=== PATIENT | female | born 2000 | race Caucasian/White ===

== ENCOUNTER 2019-12-11 17:36 | Observation (INO) ==
[2019-12-11] MEDS ORDERED: KETOROLAC 30 MG/ML VIAL IV STA (17:48)
[2019-12-11] MEDS ORDERED: DIAZEPAM 5 MG/ML INJ 10ML VIAL IV STA (17:48)
--- NOTE | 2019-12-11 18:28 | Emergency Department Note ---
History of Present Illness General Chief Complaint: Back Injury/Pain Stated Complaint: BACK INJURY Time Seen by Provider: 12/11/19 17:38 Source: patient Mode of arrival: ambulatory Limitations: no limitations History of Present Illness Provider Complaint: back pain Onset (ago): hour(s) less than 1 Duration: constant Similar Symptoms Previously: No Location: lumbar spine Quality: + sharp Radiation: right leg Severity: severe Current Pain Intensity: 10 Relieved By: + immobilization and + supine Exacerbated By: + movement and + sitting upright Context: + other (Squat while catching weighted ball - "wall balls") Associated symptoms: + weakness, + difficulty walking and + parasthesias Treatments prior to arrival: prescription analgesics This 19-year-old female patient presents the emergency department today via ambulance due to severe low back pain. The patient states she was working out and doing wall balls. She states she caught the weighted ball and squatted down when she experienced the sudden onset of severe low back pain. She states she was immediately unable to move, felt to her hands and knees, and was assisted to lie flat on the ground. The patient complains of a sharp pain which radiates from her low back upwards and down into the right leg. The patient reports severe spasms. She states her right leg feels tingly and she was unable to ambulate after this occurred. The patient denies any head or neck pain. She did not fall. She denies any direct trauma. She denies any recent fever or illness. She denies history of back problems. She was given 1 dose of morphine while in route to the ED without relief. She denies any bowel or bladder incontinence. She denies any abdominal pain. Home Medications Home Medications Medication Instructions Recorded Confirmed Type L norgest/e.estradiol-e.estrad 1 tab PO HS 12/11/19 12/11/19 History [Camrese] cyclobenzaprine 10 mg PO TID PRN #15 tab 12/11/19 Rx hydrocodone-acetaminophen [[place]ier] 1 tab PO Q6H PRN #10 tab 12/11/19 Rx prednisone 40 mg PO DAILY 4 Days #8 tab 12/11/19 Rx spironolactone 50 mg PO HS 12/11/19 12/11/19 History Allergies Allergy/AdvReac Type Severity Reaction Status Date / Time Fish Containing Products AdvReac Intermediate Vomiting Verified 12/11/19 19:17 Past Med/Surg History Medical History Cervical strain (Resolved) Menstrual cramps (Acute) Nausea & vomiting (Acute) Social History Preferred Language: Azeri Feels Safe at Home: Yes Smoking Status: Never smoker Review of Systems A total of 10 systems reviewed and were otherwise negative Physical Exam Vital Signs Vital Signs - 24 hr 12/11/19 17:43 12/11/19 20:04 12/11/19 20:35 Temperature 36.8 C Temperature Source Oral Pulse Rate 85 Pulse Rate [Right Finger] 90 87 Respiratory Rate 24 22 20 Respiratory Effort / Characteristics Non-Labored Spontaneous Respiratory Depth Normal Respiratory Pattern Regular Blood Pressure 118/76 Blood Pressure [Right Arm] 125/58 L 135/68 Blood Pressure Mean 90 Blood Pressure Mean [Right Arm] 80 90 Blood Pressure Position Lying Pulse Oximetry 100 99 97 Oxygen Delivery Method Room Air Sepsis Recent Fever Within 48 Hours No Sepsis New/Unexplained Change in Mental Status No Sepsis Action Taken by Nursing No Action Required VITALS: Vitals are noted on the nurse's note and reviewed by myself. Vital signs stable. GENERAL: This is a 19-year-old white female, tearful, unwilling to move, nondiaphoretic, well-developed well-nourished. SKIN: The skin was without rashes, erythema, edema, or bruising. There is no tenting of the skin. Capillary refill less than 2 seconds. HEAD: Normocephalic atraumatic. EYES: Conjunctivae without injection, sclerae without icterus. NECK: Supple without nuchal rigidity. No lymphadenopathy. No thyromegaly. Cervical spine is nontender. HEART: Regular rate and rhythm without murmurs gallops or rubs. LUNGS: Clear to auscultation bilaterally without wheezes, rales or rhonchi. No retractions or accessory muscle use. ABDOMEN: Positive bowel sounds x 4. Normal tympanic percussion. Soft, n ontender, without masses or organomegaly. No guarding or rebound tenderness. MUSCULOSKELETAL: No muscle atrophy, erythema, or edema noted. Full range of motion without joint tenderness in all extremities. Severe tenderness over the lumbar spine and paraspinous muscles. Positive straight leg raise test bilaterally. No tenderness over the paraspinous muscles in the thoracic or cervical region. Patient states she is unable to ambulate. Strength 4/5 bilateral lower extremities. NEURO: Patient was alert and oriented to person place and time. Normal sensation to light and sharp touch. Deep tendon reflexes 2+ throughout. No focal neurological deficits. Course Course The patient was seen and evaluated as above. Patient did receive IV morphine by EMS prior to arrival. An order was placed for continuous cardiac monitoring. The monitor shows a normal sinus rhythm at a rate of 87 bpm. Patient medicated with IV Toradol and Valium. Imaging performed and reviewed by myself and radiologist as noted. I discussed the findings with the patient at bedside. She was reassessed and feels that she will likely be able to go home. Patient medicated with IV Decadron. Ambulatory trial attempted by nursing staff. Patient unable to ambulate without significant assistance and blacked out during the ambulatory trial. Prior to considering admission I again reassessed the patient. She was medicated with IV morphine, and would like to try ambulatory trial again. Ambulatory trial attempted. Patient was unable to ambulate without extensive assistance. At this time, I recommended admission due to intractable back pain. The patient was agreeable. I discussed case with the affiliate manager. I discussed the case with Dr. Agustin, [facility] hospitalist combat control manager. He did agree to see and evaluate the patient. Administered Medications Discontinued Medications Dexamethasone Sodium Phosphate (Decadron Pf) 10 mg IV NOW ONE Stop: 12/11/19 19:10 Last Admin: 12/11/19 20:04 Dose: 10 mg Documented by: [id number] Diazepam (Valium) 2 mg IV NOW STA Stop: 12/11/19 17:49 Last Admin: 12/11/19 18:12 Dose: 2 mg Documented by: [id number] Ketorolac Tromethamine (Toradol) 30 mg IV NOW STA Stop: 12/11/19 17:49 Last Admin: 12/11/19 18:10 Dose: 30 mg Documented by: [id number] Morphine Sulfate (Morphine Sulfate) 4 mg IV NOW STA Stop: 12/11/19 20:42 Last Admin: 12/11/19 20:47 Dose: 4 mg Documented by: [id number] Medical Decision Making Differential Diagnosis lumbar radiculopathy, sciatica, strain of lumbar region, renal colic, pyelonephritis, thoracic back pain, discitis, muscular strain, fracture, aortic disease, infection, renal colic, gastrointestinal, lumbago, cauda equina and cord compression Medical Records Attestation: I reviewed the patient's medical records. Home Medications Current Medication List: was personally reviewed by me Imaging Data Radiologist's Impression: MR lumbar spine wo con CLINICAL HISTORY: severe low back pain, paresthesias NUMBNESS AND TINGLING DOWN BOTH LEGS. TECHNIQUE: Sagittal and axial T1, T2 and STIR images were obtained. COMPARISON STUDY: No previous studies for comparison. OBSERVATIONS: The vertebral bodies and posterior elements appear intact. There is no abnormal bony signal present to suggest a marrow replacement process. L1-2: No disc protrusions or extrusions. No evidence of spinal canal or neural foraminal compromise. L2-3: No disc protrusions or extrusions. No evidence of spinal canal or neural foraminal compromise. L3-4: No disc protrusions or extrusions. No evidence of spinal canal or neural foraminal compromise. L4-5: There is an annular fissure and small broad-based central disc protrusion. There is minimal effacement the anterior thecal sac. There is no significant foraminal narrowing. L5-S1: There is an annular fissure and small broad-based central disc protrusion. There is minimal effacement the anterior thecal sac. There is no significant foraminal narrowing. The conus medullaris and cauda equina appear normal. IMPRESSION: Annular fissures and small broad-based central disc protrusions at the L4-5, and L5-S1 levels. ACT 112: Negative or not required by law. Electronically signed by: Pierre Louis M.D. 12/11/2019 7:00 PM Blood Pressure Blood Pressure Findings: Elevated blood pressure Blood Pressure Disposition: elevated BP felt to be situational MDM Narrative This 19-year-old female patient presents the emergency department today due to severe back pain after an injury. The patient experienced sudden onset of pain while doing a squat after catching a weighted ball. Pain was so severe she was unable to ambulate, and had to be assisted to the ground. She presented to the emergency department today via ambulance. Due to the severe pain out of proportion to reported injury, we did elect to perform MRI to evaluate her symptoms. MRI showed annular fissures and small broad-based central disc protrusions at L4-L5 and L5-S1. The patient had several rounds of narcotic analgesics, benzos for muscle spasms, and anti-inflammatory medications without relief. She was unable to ambulate without extensive assistance. Given these findings, I did recommend the patient stay in the hospital for pain control, as I do not feel she will be able to complete ADLs at home and lives alone. The patient was agreeable. She will be admitted to the hospitalist service. Please see hospitalist dictation regarding ongoing management care of this patient. The chart was completed utilizing [employer] voice recognition software. Grammatical errors, random word insertions, pronoun errors, and incomplete sentences are an occasional consequence of this system due to software limitations, ambient noise, and hardware issues. Any formal questions or concerns about the content, text, or information contained within the body of this dictation should be directly addressed to the provider for clarification. Impression & Plan Back pain, Paresthesias Discharge Plan Visit Data Chief Complaint: Back Injury/Pain Stated Complaint: BACK INJURY ED Provider: Negar Chapman ED Midlevel Provider: Renetta Rodriguez Discharge Problem: Back pain, Paresthesias Patient Disposition: Admitted As Inpatient Condition: Good Discharge Instructions Evans/Other Patient Handouts: ED Back Care Tips, ED LUMBAR SPRAIN/STRAIN, ED LUMBAR RADICULOPATHY Forms Stand Alone Forms: [facility], Important Visit Information Prescriptions Prescriptions: New cyclobenzaprine 10 mg tablet 10 mg PO TID PRN (Reason: muscle spasm) Qty: 15 RF: 0 prednisone 20 mg tablet 40 mg PO DAILY 4 Days Qty: 8 RF: 0 hydrocodone-acetaminophen [Saucier] 5-325 mg tablet 1 tab PO Q6H PRN (Reason: pain) Qty: 10 RF: 0 No Action spironolactone 50 mg tablet 50 mg PO HS RF: 0 L norgest/e.estradiol-e.estrad [Camrese] 0.15 mg-30 mcg (84)/10 mcg (7) tablets,dose pack,3 month 1 tab PO HS RF: 0 Referrals Referrals: Lakesha Dodge DO [Primary Care Provider] - Discharge Problem: Back pain Qualifiers: Back pain location: low back pain Chronicity: acute Back pain laterality: right Sciatica presence: without sciatica Qualified Code(s): M54.5 - Low back pain
--- NOTE | 2019-12-11 19:01 | Magnetic Resonance Report ---
MR lumbar spine wo con CLINICAL HISTORY: severe low back pain, paresthesias NUMBNESS AND TINGLING DOWN BOTH LEGS. TECHNIQUE: Sagittal and axial T1, T2 and STIR images were obtained. COMPARISON STUDY: No previous studies for comparison. OBSERVATIONS: The vertebral bodies and posterior elements appear intact. There is no abnormal bony signal present t o suggest a marrow replacement process. L1-2: No disc protrusions or extrusions. No evidence of spinal canal or neural foraminal compromise. L2-3: No disc protrusions or extrusions. No evidence of spinal canal or neural foraminal compromise. L3-4: No disc protrusions or extrusions. No evidence of spinal canal or neural foraminal compromise. L4-5: There is an annular fissure and small broad-based central disc protrusion. There is minimal eff acement the anterior thecal sac. There is no significant foraminal narrowing. L5-S1: There is an annular fissure and small broad-based central disc protrusion. There is minimal ef facement the anterior thecal sac. There is no significant foraminal narrowing. The conus medullaris and cauda equina appear normal. IMPRESSION: Annular fissures and small broad-based central disc protrusions at the L4-5, and L5-S1 le vels. ACT 112: Negative or not required by law. Electronically signed by: Pierre Louis M.D. 12/11/2019 7:00 PM
[2019-12-11] MEDS ORDERED: DEXAMETHASONE **PF** INJ 10 MG/ML VIAL IV ONE (19:09)
[2019-12-11] MEDS ORDERED: MoRPHine SULFATE 4 MG/ML 1 ML CARP\\VIAL IV STA (20:41)
[2019-12-11] MEDS: LIDOCAINE 5% 1 PATCH TD SCH (22:32)
--- NOTE | 2019-12-11 23:01 | History & Physical Report ---
Date of Service December 11, 2019 Assessment & Plan (1) Back pain: Intractable sciatica symptoms post injury/strain OBS GMF Analgesia Lidoderm patch trial PT eval Pain management consultation in a.m. if patient still uncomfortable. DVT prophylaxis. SCDs Full code Text document was generated using [employer] voice recognition software. It may contain grammatical or spelling errors. Kindly contact undersigned for clarification of any documentation item in question. History of Present Illness Chief Complaint: Back pain Primary Care Provider: Lakesha Dodge DO History obtained from patient and records. Medical history significant for acne on spironolactone Rx. Patient was working out today doing wall balls. Catching no weighted ball made patient squat down which led to sudden onset severe low back pain with radiation to the right lower extremity. Back pain worse with moving around. No incontinence, no fever, no chills. Intractable discomfort at the ER. 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 Allergies Allergy/AdvReac Type Severity Reaction Status Date / Time Fish Containing Products AdvReac Intermediate Vomiting Verified 12/11/19 19:17 Home Medications Home Medications Medication Instructions Recorded Confirmed Type L norgest/e.estradiol-e.estrad 1 tab PO HS 12/11/19 12/11/19 History [Camrese] cyclobenzaprine 10 mg PO TID PRN #15 tab 12/11/19 Rx hydrocodone-acetaminophen [[place]] 1 tab PO Q6H PRN #10 tab 12/11/19 Rx prednisone 40 mg PO DAILY 4 Days #8 tab 12/11/19 Rx spironolactone 50 mg PO HS 12/11/19 12/11/19 History Past Med/Surg History Medical History Cervical strain (Resolved) Menstrual cramps (Acute) Nausea & vomiting (Acute) Social History Preferred Language: Gambian Communication Ability: Effective Residential Treatment Counselor Required: No Beliefs That Will Affect Care: None Current Living Situation: Alone Other Information That Helps Us Care for You: No Feels Safe at Home: Yes Safety Concerns: Feels Safe At This Time Smoking Status: Never smoker Second Hand Exposure: No ; Hx Alcohol Use: Yes Alcohol type: beer, wine and hard liquor Hx Substance Use: No Review of Systems Review of Systems: As per HPI, all 10 systems reviewed, all other ROS negative Physical Exam Physical Exam: GENERAL: Slightly uncomfortable, pleasant, no respiratory distress SKIN: Normal color, warm HEENT: [place] palpebral conjunctivae, no ptosis, moist buccal mucosa NECK : Supple, no tenderness CHEST : CTA, no tenderness HEART : RRR, no obvious murmurs ABDOMEN: Some distention, nontender BACK : Low back tenderness with some spasm noted, abnormal straight leg raise test R > L EXTREMITIES : No LE swelling/tenderness, no other conspicuous deformities noted NEUROLOGIC : Coherent, no facial asymmetry, no other gross focality Results & Data Results & Data ([facility]) Vital Signs (Past 12 Hours) Vital Signs Temp Pulse Pulse Resp BP BP Pulse Ox 12/11/19 22:30 90 20 122/65 98 12/11/19 20:35 87 20 135/68 97 12/11/19 20:04 90 22 125/58 L 99 12/11/19 17:43 36.8 C 85 24 118/76 100 Laboratory Results Laboratory Results WBC 11.97 K/uL (4.8-10.8) H 12/11/19 23:55 RBC 5.16 M/uL (4.2-5.4) 12/11/19 23:55 Hgb 14.3 g/dL (12.0-16.0) 12/11/19 23:55 Hct 43.7 % (37-47) 12/11/19 23:55 MCV 84.7 fL (80-100) 12/11/19 23:55 MCH 27.7 pg (25-34) 12/11/19 23:55 MCHC 32.7 g/dL (32-36) 12/11/19 23:55 RDW Std Deviation 41.1 fL (36.4-46.3) 12/11/19 23:55 RDW Coeff of Opal 13.3 % (11.5-14.5) 12/11/19 23:55 Plt Count 354 K/uL (130-400) 12/11/19 23:55 MPV 9.5 fL (7.4-10.4) 12/11/19 23:55 Immature Gran % (Auto) 0.2 % 12/11/19 23:55 Neut % (Auto) 94.0 % 12/11/19 23:55 Lymph % (Auto) 5.4 % 12/11/19 23:55 [place] % (Auto) 0.3 % 12/11/19 23:55 Eos % (Auto) 0.0 % 12/11/19 23:55 Baso % (Auto) 0.1 % 12/11/19 23:55 Immature Gran # (Auto) 0.02 K/uL (0.00-0.02) 12/11/19 23:55 Neut # (Auto) 11.25 K/uL (1.4-6.5) H 12/11/19 23:55 Lymph # (Auto) 0.65 K/uL (1.2-3.4) L 12/11/19 23:55 [place] # (Auto) 0.04 K/uL (0.11-0.59) L 12/11/19 23:55 Eos # (Auto) 0.00 K/uL (0-0.5) 12/11/19 23:55 Baso # (Auto) 0.01 K/uL (0-0.2) 12/11/19 23:55 Sodium 139 mmol/L (136-145) 12/11/19 23:55 Potassium 4.2 mmol/L (3.5-5.1) 12/11/19 23:55 Chloride 106 mmol/L (98-107) 12/11/19 23:55 Carbon Dioxide 25 mmol/L (21-32) 12/11/19 23:55 Anion Gap 8.0 (3-11) 12/11/19 23:55 BUN 10 mg/dl (7-18) 12/11/19 23:55 Creatinine 0.97 mg/dl (0.6-1.2) 12/11/19 23:55 Est Cr Clr Drug Dosing 78.8 ml/min 12/11/19 23:55 Est GFR ( Amer) 96.8 12/11/19 23:55 Est GFR (Non-Af Amer) 83.5 12/11/19 23:55 BUN/Creatinine Ratio 10.5 (10-20) 12/11/19 23:55 Glucose 114 mg/dl (70-99) H 12/11/19 23:55 Calcium 9.2 mg/dl (8.5-10.1) 12/11/19 23:55 Magnesium 2.1 mg/dl (1.8-2.4) 12/11/19 23:55 Total Bilirubin 0.4 mg/dl (0.2-1) 12/11/19 23:55 AST 20 U/L (15-37) 12/11/19 23:55 ALT 17 U/L (12-78) 12/11/19 23:55 Alkaline Phosphatase 81 U/L (45-117) 12/11/19 23:55 Total Protein 8.3 gm/dl (6.4-8.2) H 12/11/19 23:55 Albumin 3.8 gm/dl (3.4-5.0) 12/11/19 23:55 Globulin 4.5 gm/dl (2.5-4.0) H 12/11/19 23:55 Albumin/Globulin Ratio 0.8 (0.9-2) L 12/11/19 23:55 Urine Color Dark Yellow 12/12/19 00:50 Urine Appearance Clear (Clear) 12/12/19 00:50 Urine pH >= 9.0 (4.5-7.5) H 12/12/19 00:50 Ur Specific [place] 1.024 (1.000-1.030) 12/12/19 00:50 Urine Protein Negative (Negative) 12/12/19 00:50 Urine Glucose (UA) Negative (Negative) 12/12/19 00:50 Urine Ketones Negative (Negative) 12/12/19 00:50 Urine Blood Negative (Negative) 12/12/19 00:50 Urine Nitrite Negative (Negative) 12/12/19 00:50 Urine Bilirubin Negative (Negative) 12/12/19 00:50 Urine Urobilinogen Negative (Negative) 12/12/19 00:50 Ur Leukocyte Esterase Negative (Negative) 12/12/19 00:50 Urine WBC (Auto) 5-10 /hpf (0-5) H 12/12/19 00:50 Urine RBC (Auto) 0-4 /hpf (0-4) 12/12/19 00:50 U Hyaline Cast (Auto) 1-5 /lpf (0-5) 12/12/19 00:50 U Epithel Cells (Auto) >30 /lpf (0-5) H 12/12/19 00:50 Urine Bacteria (Auto) 1+ (Negative) H 12/12/19 00:50 Urine Test Negative (Negative) 12/12/19 00:50 Diagnostic Findings Lumbar spine MRI: Annular fissures and small broad-based central disc protrusions at the L4-5, and L5-S1 levels. (1) Back pain Back pain laterality: right Back pain location: low back pain Chronicity: acute Sciatica presence: without sciatica Qualified Code(s): M54.5 - Low back pain
[2019-12-12 00:15] LABS: Basophils # (auto) 0.01 K/uL (0-0.2); Basophils % (auto) 0.1 %; Hematocrit (blood only) 43.7 % (37-47); Hemoglobin 14.3 g/dL (12.0-16.0); Immature Granulocytes # (auto) 0.02 K/uL (0.00-0.02); Immature Granulocytes % (auto) 0.2 %; Lymphocytes # (auto) 0.65 K/uL (1.2-3.4); Lymphocytes % (auto) 5.4 %; Mean Corpuscular Hemoglobin 27.7 pg (25-34); Mean Corpuscular Hgb Conc 32.7 g/dL (32-36); Mean Corpuscular Volume 84.7 fL (80-100); Mean Platelet Volume 9.5 fL (7.4-10.4); Monocytes # (auto) 0.04 K/uL (0.11-0.59); Monocytes % (auto) 0.3 %; Neutrophils # (auto) 11.25 K/uL (1.4-6.5); Platelet Count 354 K/uL (130-400); RDW Coefficient of Variation 13.3 % (11.5-14.5); RDW Standard Deviation 41.1 fL (36.4-46.3); Red Blood Count 5.16 M/uL (4.2-5.4); White Blood Count 11.97 K/uL (4.8-10.8)
[2019-12-12] MEDS ORDERED: TIZANIDINE HCL 4 MG TABLET PO PRN (00:16)
[2019-12-12] MEDS ORDERED: PROMETHAZINE HCL 6.25 MG in SODIUM CHLORIDE 0.9% 50 ML IV STA (00:16)
[2019-12-12] MEDS ORDERED: ACETAMINOPHEN 325 MG TAB PO PRN (00:16)
[2019-12-12] MEDS ORDERED: IBUPROFEN 200 MG TAB PO PRN (00:16)
[2019-12-12 00:33] LABS: Albumin Level 3.8 gm/dl (3.4-5.0); BUN Creatinine Ratio 10.5 (10-20); Calcium 9.2 mg/dl (8.5-10.1); Creatinine Clr Calc Pharmacy 78.8 ml/min; Est GFR (African American) 96.8; Est GFR (Non-African American) 83.5; Magnesium 2.1 mg/dl (1.8-2.4); Potassium 4.2 mmol/L (3.5-5.1)
[2019-12-12 00:36] LABS: Albumin Globulin Ratio 0.8 (0.9-2); Bilirubin,Total 0.4 mg/dl (0.2-1); Globulin 4.5 gm/dl (2.5-4.0); Total Protein 8.3 gm/dl (6.4-8.2)
[2019-12-12] MEDS ORDERED: MoRPHine SULFATE 2 MG/ML CARP IV PRN (00:39)
[2019-12-12] MEDS: KETOROLAC TROMETHAMINE 15 MG/ML VIAL IV PRN ×4 (00:45→17:00)
[2019-12-12 01:58] LABS: Pregnancy Test, Urine Negative (Negative)
[2019-12-12 02:02] LABS: Appearance Urine Clear (Clear); Bacteria Urine Automated 1+ (Negative); Bilirubin Urine Negative (Negative); Blood Urine Negative (Negative); Color Urine Dark Yellow; Epithelial Cell Urine Auto >30 /lpf (0-5); Glucose Urine UA Negative (Negative); Ketones Urine Negative (Negative); Leukocyte Esterase Urine Negative (Negative); Nitrite Urine Negative (Negative); RBC Urine Automated 0-4 /hpf (0-4); Specific Gravity Urine 1.024 (1.000-1.030); Urobilinogen Urine Negative (Negative); pH Urine >= 9.0 (4.5-7.5)
[2019-12-12 02:16] LABS: Protein Urine Negative (Negative); Sulfosalicylic Acid Urine Negative (Negative)
[2019-12-12] MEDS ORDERED: PROMETHAZINE HCL 12.5 MG in SODIUM CHLORIDE 0.9% 50 ML IV PRN (05:27)
[2019-12-12] MEDS: LIDOCAINE 5% 1 PATCH TD SCH (08:30)
[2019-12-12] MEDS: BCP'S~ORDER AWAITING ACTION SCH ×3 (08:30→23:18)
[2019-12-12] MEDS: TRAMADOL HCL 50 MG TABLET PO PRN ×3 (08:40→16:35)
[2019-12-12] MEDS: HYDROCODONE/ACETAMOPHEN 5/325MG TAB PO PRN ×2 (18:50→23:14)
--- NOTE | 2019-12-12 19:40 | Hospitalist Progress Note ---
Date of Service December 12, 2019 Assessment & Plan (1) Back pain: secondary to L4-S1 Disc Bulge, Annular Fissured on Toradol IV, Ibuprofen, Tramadol, Zanaflex IV site was lost and patient not comfortable with another IV site will add PRN Oxycodone Ice packs Pain management consulted due to persistent back pain PT recommends patient may return home when medically stable DVT prophylaxis. SCDs Disposition possible d/c home tomorrow when pain is better controlled plan of care care discussed with patient in detail all questions answered she is understanding, agreeable, comfortable with plan of care Admission and Anticipated Discharge Date Admission Date: December 11, 2019 Subjective ffup for intractable back pain seen at bedside with MURTAZA Le at bedside throughout whole encounter not in distress states low back pain still at 7/10, worse with movement, ambulation had increased pain after PT no radiating pain to the legs, no weakness/numbness of legs, no incontinence no other symptoms Review of Systems Review of Systems: All systems reviewed & are unremarkable except as noted in HPI & below Physical Exam Physical Exam: General- oriented x 3, not in distress, speaks in sentences with no effort or accessory muscle use Eyes- anicteric Neck- no JVD Lungs- clear breath sounds bilaterally, no rales/wheezes Heart- normal rate, regular rhythm; no murmurs Abdomen- normal bowel sounds, nondistended, soft, nontender Extremities- no pretibial edema, no calf tenderness (+) straight leg test Neuro- alert, oriented x 3; no gross focal neurologic deficits Skin- warm & dry Results & Data Results & Data ([facility]) Vital Signs (Past 12 Hours) Vital Signs Temp Pulse Resp BP BP Pulse Ox 12/12/19 15:39 36.8 C 74 18 111/69 100 12/12/19 11:00 36.6 C 75 18 115/65 100 12/12/19 07:47 36.6 C 82 14 109/69 100 Laboratory Results Laboratory Results - last 24 hr 12/11/19 12/11/19 12/12/19 23:55 23:55 00:50 WBC 11.97 H RBC 5.16 Hgb 14.3 Hct 43.7 MCV 84.7 MCH 27.7 MCHC 32.7 RDW Std Deviation 41.1 RDW Coeff of Opal 13.3 Plt Count 354 MPV 9.5 Immature Gran % (Auto) 0.2 Neut % (Auto) 94.0 Lymph % (Auto) 5.4 [place] % (Auto) 0.3 Eos % (Auto) 0.0 Baso % (Auto) 0.1 Immature Gran # (Auto) 0.02 Neut # (Auto) 11.25 H Lymph # (Auto) 0.65 L [place] # (Auto) 0.04 L Eos # (Auto) 0.00 Baso # (Auto) 0.01 Sodium 139 Potassium 4.2 Chloride 106 Carbon Dioxide 25 Anion Gap 8.0 BUN 10 Creatinine 0.97 Est Cr Clr Drug Dosing 78.8 Est GFR ( Amer) 96.8 Est GFR (Non-Af Amer) 83.5 BUN/Creatinine Ratio 10.5 Glucose 114 H Calcium 9.2 Magnesium 2.1 Total Bilirubin 0.4 AST 20 ALT 17 Alkaline Phosphatase 81 Total Protein 8.3 H Albumin 3.8 Globulin 4.5 H Albumin/Globulin Ratio 0.8 L Urine Color Urine Appearance Urine pH Ur Specific [place] Urine Protein Urine Glucose (UA) Urine Ketones Urine Blood Urine Nitrite Urine Bilirubin Urine Urobilinogen Ur Leukocyte Esterase Urine WBC (Auto) Urine RBC (Auto) U Hyaline Cast (Auto) U Epithel Cells (Auto) Urine Bacteria (Auto) Urine Test Negative 12/12/19 00:50 WBC RBC Hgb Hct MCV MCH MCHC RDW Std Deviation RDW Coeff of Opal Plt Count MPV Immature Gran % (Auto) Neut % (Auto) Lymph % (Auto) [place] % (Auto) Eos % (Auto) Baso % (Auto) Immature Gran # (Auto) Neut # (Auto) Lymph # (Auto) [place] # (Auto) Eos # (Auto) Baso # (Auto) Sodium Potassium Chloride Carbon Dioxide Anion Gap BUN Creatinine Est Cr Clr Drug Dosing Est GFR ( Amer) Est GFR (Non-Af Amer) BUN/Creatinine Ratio Glucose Calcium Magnesium Total Bilirubin AST ALT Alkaline Phosphatase Total Protein Albumin Globulin Albumin/Globulin Ratio Urine Color Dark Yellow Urine Appearance Clear Urine pH >= 9.0 H Ur Specific [place] 1.024 Urine Protein Negative Urine Glucose (UA) Negative Urine Ketones Negative Urine Blood Negative Urine Nitrite Negative Urine Bilirubin Negative Urine Urobilinogen Negative Ur Leukocyte Esterase Negative Urine WBC (Auto) 5-10 H Urine RBC (Auto) 0-4 U Hyaline Cast (Auto) 1-5 U Epithel Cells (Auto) >30 H Urine Bacteria (Auto) 1+ H Urine Test (1) Back pain Back pain laterality: right Back pain location: low back pain Chronicity: acute Sciatica presence: without sciatica Qualified Code(s): M54.5 - Low back pain
[2019-12-12] MEDS ORDERED: SPIRONOLACTONE 25 MG TAB PO SCH (21:00)
[2019-12-13] MEDS: BCP'S~ORDER AWAITING ACTION SCH ×2 (00:07→07:36)
[2019-12-13] MEDS: HYDROCODONE/ACETAMOPHEN 5/325MG TAB PO PRN ×3 (05:49→14:31)
[2019-12-13] MEDS ORDERED: methylPREDNISolone 4 MG TAB, 6 DAY TAPER PO SCH (08:15)
[2019-12-13] MEDS ORDERED: methylPREDNISolone 4 MG TAB PO SCH ×2 (09:00→13:00)
[2019-12-13] MEDS ORDERED: DOCUSATE SODIUM/SENNA 50/8.6MG TAB PO SCH (09:00)
[2019-12-13] MEDS ORDERED: [UNRECOGNIZED DRUG - OTHER] TOP SCH (09:00)
[2019-12-13] MEDS: LIDOCAINE 5% 1 PATCH TD SCH (09:04)
[2019-12-13] MEDS: BACLOFEN 10 MG TAB PO SCH ×2 (09:05→13:00)
--- NOTE | 2019-12-13 09:51 | Pain Management Consultation ---
Date of Consultation December 13, 2019 Assessment & Plan (1) Back pain: Back pain laterality: right Back pain location: low back pain Chronicity: acute Sciatica presence: without sciatica Qualified Code(s): M54.5 - Low back pain Present on Admission?: Yes (2) Acute myofascial strain of lumbar region: * MRI findings were reviewed with patient. Potential etiologies and treatment options of her presenting complaints were discussed. She verbalized understanding all of her questions were answered. * Will initiate Medrol Dosepak. Side effects versus benefits discussed * Discontinue Zanaflex and initiate baclofen 10 mg 3 times daily scheduled to assist with myofascial spasm. Side effects versus benefits discussed * Patient may utilize K pad applied to lumbar region as needed * There is no role for interventional treatment at this time * Patient was encouraged to ambulate as able * Patient may continue with hydrocodone for as needed breakthrough pain * Discharge planning per hospitalist team Present on Admission?: Yes History of Present Illness Reason for Consultation: Intractable low back pain Requesting Physician: Isma Salter MD Attending Physician: Iman Quintero MD History of Present Illness Mrs. Higgins is a 19-year-old white female who was admitted due to intractable axial back pain and right lower extremity pain and paresthesia complaints and nondermatomal patterns. The patient was reportedly performing a [employer] exercise with a weighted ball with catching it and squatting when she developed severe acute back pain on 12/11/2019. She reported that her pain is sharp and stabbing in characteristic in the axial lumbosacral region right greater than left-sided and can travel into the right gluteal and hip region and rarely into the lower extremity with paresthesias in a nondermatomal pattern. She indicates that any movement of her trunk or lower extremities increases axial pain. Her pain is 80% axial compared to 20% in the right lower extremity. Patient indicates that her current pain is a 6-7/10 while supine but escalates to a 8- 9/10 with any movement. She describes generalized weaknesses of the lower and upper extremities. She is having difficulty ambulating and is utilizing a four- point walker. She reports ice is somewhat helpful as well as hydrocodone. She denies bowel or bladder incontinence or any saddle anesthesias. She reports benefit from hydrocodone with minimal sedation. She did attempt to participate in PT/OT yesterday with limitation due to discomfort. She did undergo MRI scan of the lumbar spine which revealed small broad-based central disc protrusions at L4-5 and L5-S1 with no evidence of central spinal canal or neuroforaminal stenosis. There is no overt disc herniation identified. Patient is eager to return home. She has not had a bowel movement since the day prior to admission. She denies abdominal pain, fullness or bloating. She reports some nausea this morning potentially associated with use of hydrocodone. Patient has no further constitutional complaints. Plan of care discussed with Dr. Zulay aCal. Pain Assessment Full Body Front + Back: 1. Axial lumbosacral spine-right greater left-sided extending into the gluteal region 2. Right hip and proximal thigh region Pain scale - at its best (0-10): 7 Pain scale - at its worst (0-10): 9 Allergies Allergy/AdvReac Type Severity Reaction Status Date / Time Fish Containing Products AdvReac Intermediate Vomiting Verified 12/11/19 19:17 Home Medications Home Medications Medication Instructions Recorded Confirmed Type L norgest/e.estradiol-e.estrad 1 tab PO HS 12/11/19 12/11/19 History [Camrese] cyclobenzaprine 10 mg PO TID PRN #15 tab 12/11/19 Rx hydrocodone-acetaminophen [[place]] 1 tab PO Q6H PRN #10 tab 12/11/19 Rx prednisone 40 mg PO DAILY 4 Days #8 tab 12/11/19 Rx spironolactone 50 mg PO HS 12/11/19 12/11/19 History Pain History Pain Intensity Pain scale - at its best (0-10): 7 Pain scale - at its worst (0-10): 9 Patient History Medical History Cervical strain (Resolved) Menstrual cramps (Acute) Nausea & vomiting (Acute) Social History Preferred Language: Moroccan Communication Ability: Effective 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 Speech and thought process appropriate. Mood and affect appropriate. Cognition intact. Patient intermittently weepy throughout the visit. Head: Normocephalic and atraumatic. ENT: No evidence of nasal or oral mucosal lesions. Mucous membranes are moist. Eyes: Pupils equal round reactive to light. Neck: Supple without adenopathy and full range of motion. Chest: Nontender to palpation of the costosternal junction. Abdomen: Soft and nondistended. No organomegaly. Bowel sounds active. Back/spine: Patient was able to logroll towards her left with discomfort. Normal lumbar lordosis. Patient is diffusely tender over the lumbosacral region which is nonfocal. There is evidence of paravertebral spasm extending from the thoracolumbar junction through the lumbosacral region. No appreciable myoneur al trigger points. Patient diffusely tender throughout the gluteal region right greater than left-sided. Slightly hyperalgesic response to palpation was appreciated with guarding. Lower extremities: Any active or passive movement of the lower extremities increases axial pain bilaterally right greater left-sided. Strength testing was 5/5 with dorsi and plantar flexion. Strength testing was 5/5 with hip flexion/extension with increased axial pain complaint. Sensation was intact without deficit. No evidence of edema, erythema or skin breakdown. Moderately tender over the left greater trochanter and nontender corresponding on the right. Neurologic: Cranial nerves grossly intact. Ambulatory function not witnessed. Results Diagnostic Review MRI: non enhanced and reports reviewed MRI Findings: [facility] [place] [phone] Magnetic Resonance Report Patient: Bibiana HIGGINS Date: 12/11/19 MR#: [id number]: [address] Acct ID:[id number]: Date: [address] Zip: [place] [address] Age: 19Location: ED Sex: F Room/Bed: Att Phy:Diagnosis: BACK INJURY Jacki Phy: Lakesha Dodge, DOService Date: 12/11/19 Fam Phy:Interpreting Phy: Pierre Louis MD Admit Phy: Ordering Phy: Renetta Rodriguez PA-C cc: ~ MR lumbar spine wo con CLINICAL HISTORY: severe low back pain, paresthesias NUMBNESS AND TINGLING DOWN BOTH LEGS. TECHNIQUE: Sagittal and axial T1, T2 and STIR images were obtained. COMPARISON STUDY: No previous studies for comparison. OBSERVATIONS: The vertebral bodies and posterior elements appear intact. There is no abnormal bony signal present to suggest a marrow replacement process. L1-2: No disc protrusions or extrusions. No evidence of spinal canal or neural foraminal compromise. L2-3: No disc protrusions or extrusions. No evidence of spinal canal or neural foraminal compromise. L3-4: No disc protrusions or extrusions. No evidence of spinal canal or neural foraminal compromise. L4-5: There is an annular fissure and small broad-based central disc protrusion. There is minimal effacement the anterior thecal sac. There is no significant foraminal narrowing. L5-S1: There is an annular fissure and small broad-based central disc protrus ion. There is minimal effacement the anterior thecal sac. There is no significant foraminal narrowing. The conus medullaris and cauda equina appear normal. IMPRESSION: Annular fissures and small broad-based central disc protrusions at the L4-5, and L5-S1 levels. ACT 112: Negative or not required by law. Electronically signed by: Pierre Louis M.D. 12/11/2019 7:00 PM Dictated: 12/11/191855 Transcribed: 12/11/191855 Previous Records Review Previous Records: personally reviewed by me
--- NOTE | 2019-12-13 13:52 | Hospitalist Progress Note ---
Date of Service December 13, 2019 Assessment & Plan (1) Back pain: Secondary to L4-S1 strain with bulging of disc, Annular Fissured Has been on Toradol IV, Ibuprofen, Tramadol, Zanaflex PRN Oxycodone was added yesterday Ice packs Pain management consulted due to persistent back pain-appreciate input and recommendation PT recommends patient may return home when medically stable DVT prophylaxis. SCDs Disposition She wants to go home this afternoon Discharge home this afternoon Advised to very careful and use wheeled walker at home Admission and Anticipated Discharge Date Admission Date: December 11, 2019 Subjective The patient was seen and examined in medical floor She complains to have a lot of pain at the back without any radiation to the legs She wants to go home today even though she is having a lot of pain She has been going to the bathroom with difficulty Review of Systems Review of Systems: All systems reviewed and are unremarkable except as noted below Musculoskeletal: + back pain (Severe back pain without radiation) Physical Exam Physical Exam: Lying in bed with acute distress due to back pain Constitutional: well developed, well nourished and + acute distress (Ongoing back pain) Eyes: PERRL, conjunctivae normal, anicteric sclerae ENMT: external ear and nose normal, oropharynx normal Neck: trachea midline, no thyromegaly Respiratory: normal respiratory effort; no respiratory distress Auscultation: lungs clear to auscultation bilaterally Cardiovascular: Rate/Rhythm: regular rate and regular rhythm Heart Sounds: no murmur Gastrointestinal (Abdomen): Inspection/Auscultation: abdomen normal to inspection and normal bowel sounds Percussion/Palpation: abdomen soft; abdomen nontender Musculoskeletal: Severe back pain. Clinically difficult to evaluate for radiculopathy due to severe pain. Grossly no radiculopathy Neurologic: moves all extremities; no focal motor deficits Lymphatic: no cervical or axillary lymphadenopathy Results & Data Results & Data ([facility]) Vital Signs (Past 12 Hours) Vital Signs Temp Pulse Resp BP Pulse Ox 12/13/19 07:13 36.9 C 77 16 101/56 L 98 Medications Administered Current Inpatient Medications Acetaminophen (Tylenol) 650 mg PO Q4H PRN PRN Reason: pain/fever Stop: 01/11/20 00:15 Hydrocodone Bitart/Acetaminophen ([place] 5/325) 1 tab PO Q4H PRN PRN Reason: Pain Stop: 12/26/19 17:14 Last Admin: 12/13/19 09:52 Dose: 1 tab Documented by: Baclofen (Lioresal) 10 mg PO TID [facility] Stop: 01/12/20 08:59 Last Admin: 12/13/19 13:00 Dose: 10 mg Documented by: Promethazine HCl 12.5 mg/ (Sodium Chloride) 50.5 mls @ 202 mls/hr IV Q6H PRN PRN Reason: Nausea And Vomiting Stop: 01/11/20 05:26 Ibuprofen (Advil) 200 mg PO Q6H PRN PRN Reason: Mild Pain Stop: 01/11/20 00:15 Ketorolac Tromethamine (Toradol) 15 mg IV Q6H PRN PRN Reason: Pain Stop: 12/17/19 00:15 Last Admin: 12/12/19 17:00 Dose: 15 mg Documented by: Lidocaine (Lidoderm 5%) 1 patch TD QAM [facility] Stop: 01/10/20 22:24 Last Admin: 12/13/19 09:04 Dose: 1 patch Documented by: Methylprednisolone (Medrol) 8 mg PO 0700,2100 [facility] Stop: 12/13/19 21:01 Last Admin: 12/13/19 09:05 Dose: 8 mg Documented by: Methylprednisolone (Medrol) 4 mg PO 1300,1800 [facility] Stop: 12/13/19 18:01 Last Admin: 12/13/19 12:59 Dose: 4 mg Documented by: Methylprednisolone (Medrol) 4 mg PO 0700,1300,1800 [facility] Stop: 12/14/19 18:01 Methylprednisolone (Medrol) 8 mg PO HS [facility] Stop: 12/14/19 21:01 Methylprednisolone (Medrol) 4 mg PO 0700,1300,1800,2100 [facility] Stop: 12/15/19 21:01 Methylprednisolone (Medrol) 4 mg PO 0700,1300,2100 [facility] Stop: 12/16/19 21:01 Methylprednisolone (Medrol) 4 mg PO 0700,2100 [facility] Stop: 12/17/19 21:01 Methylprednisolone (Medrol) 4 mg PO 0700 [facility] Stop: 12/18/19 07:01 Miscellaneous (Remove Lidoderm Patch) 1 ea N/A DAILY@2100 [facility] Stop: 01/11/20 20:59 Last Admin: 12/12/19 20:40 Dose: 1 ea Documented by: Miscellaneous (Order Awaiting Action) 1 ea N/A QS [facility] Stop: 01/11/20 07:59 Last Admin: 12/13/19 07:36 Dose: Not Given Documented by: Senna/Docusate Sodium (Senokot S) 1 tab PO QAM [facility] Stop: 01/12/20 08:59 Last Admin: 12/13/19 09:04 Dose: 1 tab Documented by: Spironolactone (Aldactone) 50 mg PO HS [facility] Stop: 01/11/20 20:59 Last Admin: 12/12/19 20:40 Dose: 50 mg Documented by: Tramadol HCl (Ultram) 25 - 50 mg PO Q4H PRN PRN Reason: Pain Stop: 01/11/20 00:15 Last Admin: 12/12/19 16:35 Dose: 50 mg Documented by: (1) Back pain Back pain laterality: right Back pain location: low back pain Chronicity: acute Sciatica presence: without sciatica Qualified Code(s): M54.5 - Low back pain
[2019-12-14] MEDS ORDERED: methylPREDNISolone 4 MG TAB PO SCH ×2 (07:00→21:00)
--- NOTE | 2019-12-14 08:16 | Discharge Summary ---
Date of Service December 14, 2019 Admission HPI Per Admitting Provider History obtained from patient and records. Medical history significant for acne on spironolactone Rx. Patient was working out today doing wall balls. Catching no weighted ball made patient squat down which led to sudden onset severe low back pain with radiation to the right lower extremity. Back pain worse with moving around. No incontinence, no fever, no chills. Intractable discomfort at the ER. 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 Admission Exam Per Admitting Provider Physical Exam: GENERAL: Slightly uncomfortable, pleasant, no respiratory distress SKIN: Normal color, warm HEENT: [place] palpebral conjunctivae, no ptosis, moist buccal mucosa NECK : Supple, no tenderness CHEST : CTA, no tenderness HEART : RRR, no obvious murmurs ABDOMEN: Some distention, nontender BACK : Low back tenderness with some spasm noted, abnormal straight leg raise test R > L EXTREMITIES : No LE swelling/tenderness, no other conspicuous deformities noted NEUROLOGIC : Coherent, no facial asymmetry, no other gross focality Principal Diagnosis Acute back pain secondary to L4 S1 strain with minimally bulging disc, acute myofascial strain of lumbar region Discharge Exam Constitutional well developed, well nourished and + acute distress (Ongoing back pain) Eyes PERRL, conjunctivae normal, anicteric sclerae ENMT external ear and nose normal, oropharynx normal Neck trachea midline, no thyromegaly Respiratory normal respiratory effort; no respiratory distress Auscultation: lungs clear to auscultation bilaterally Cardiovascular Rate/Rhythm: regular rate and regular rhythm Heart Sounds: no murmur Gastrointestinal (Abdomen) Inspection/Auscultation: abdomen normal to inspection and normal bowel sounds Percussion/Palpation: abdomen soft; abdomen nontender Neurologic moves all extremities; no focal motor deficits Lymphatic no cervical or axillary lymphadenopathy Discharge Data Allergies Allergy/AdvReac Type Severity Reaction Status Date / Time Fish Containing Products AdvReac Intermediate Vomiting Verified 12/11/19 19:17 Consultations 12/11/19 22:13 ED Decision to Admit Stat 12/12/19 17:15 Consult Pain Management Routine Ordered Studies 12/11/19 17:48 MR lumbar spine wo con Stat Hospital Course (1) Back pain: Secondary to L4-S1 strain with bulging of disc, Annular Fissured Has been on Toradol IV, Ibuprofen, Tramadol, Zanaflex PRN Oxycodone was added yesterday Ice packs Pain management consulted due to persistent back pain-appreciate input and recommendation PT recommends patient may return home when medically stable DVT prophylaxis. SCDs Disposition She wants to go home this afternoon Discharge home this afternoon Advised to very careful and use wheeled walker at home Total Time Total Time Spent Total Time Spent (In Minutes): 1970 Total Time Includes: Examination of the Patient, Discharge Planning, Medication Reconciliation and Communication With Other Providers Discharge Plan Discharge Items Patient Disposition: Home - Self-Care Reason For Visit: BACK PAIN Discharge Diagnosis: Acute back pain secondary to L4 S1 strain with minimally bulging disc, acute myofascial strain of lumbar region Condition on Discharge: Good Activity: As commented below Activity Comment: Take it easy and the pain is well controlled Non-emergency contact: Primary Care Provider Call non-emergency contact if: you have any medication questions and your symptoms worsen Follow-up/Referrals: Lakesha Dodge, [Primary Care Provider] - 12/19/19 10:40 am (12/19/2019 10:40 AM Jimy Auguste MD Family Practice [facility] ) Diet: Regular Addtl Attending Provider Instructions: Please take extreme precaution to avoid fall Try to use less of the narcotic analgesics Use wheeled walker to move around Pending Studies at Discharge: No Stand-Alone Forms: [facility] [employer], Smoking Cessation Medications and DC Order Prescriptions: New baclofen 10 mg Tablet 10 mg PO TID 10 Days Qty: 30 RF: 0 hydrocodone-acetaminophen [[place]] 5-325 mg Tablet 1 tab PO Q4H PRN (Reason: pain) 3 Days Qty: 12 RF: 0 methylprednisolone [Medrol (Yoshi)] 4 mg tablets,dose pack 4 mg PO UD Qty: 21 RF: 0 Continued spironolactone 50 mg tablet 50 mg PO HS RF: 0 L norgest/e.estradiol-e.estrad [Camrese] 0.15 mg-30 mcg (84)/10 mcg (7) tablets,dose pack,3 month 1 tab PO HS RF: 0 Discharge Orders: Discharge Order (Routine); Ordered 12/13/19 Ordered By: Iman Quintero Admission Data Admit Date/Time: 12/11/19 23:18 Attending Provider: Iman Quintero Admit Provider: Gael Agustin Primary Care Provider: Lakesha Dodge Other Providers: Gael Agustin ; Zulay Caal ; Isma Salter Other Interventions: Discharge Summary Assessment (RN) Last Done: 12/13/19 14:24 DC Date/Time DO NOT enter until pt leaves facility: 12/13/19 15:22
[2019-12-15] MEDS ORDERED: methylPREDNISolone 4 MG TAB PO SCH (07:00)
[2019-12-16] MEDS ORDERED: methylPREDNISolone 4 MG TAB PO SCH (07:00)
[2019-12-17] MEDS ORDERED: methylPREDNISolone 4 MG TAB PO SCH (07:00)
[2019-12-18] MEDS ORDERED: methylPREDNISolone 4 MG TAB PO SCH (07:00)
== END 2019-12-13 15:22 | disposition home or self-care (01) ==
LOC: 3E 17:36 → ED 17:36 → SUATTDRO 23:18 → 3E 23:56